=== PATIENT | male | born 2000 | race Caucasian/White ===

== ENCOUNTER 2024-03-17 00:30 | Emergency (ER) | payer OTHER ==
[2024-03-17] MEDS: Ketorolac 30 MG/ML SDV IM ONE (01:13)
== END 2024-03-17 01:18 | disposition home or self-care (01) ==
LOC: JD.ED 00:30
DX: K02.9 Dental caries, unspecified (principal); F17.210 Nicotine dependence, cigarettes, uncomplicated; Z86.16 Personal history of COVID-19; Z79.2 Long term (current) use of antibiotics; Z79.899 Other long term (current) drug therapy
CPT/HCPCS: 96372; 99282; J1885; 99283